=== PATIENT | male | born 1950 | race Caucasian/White ===

== ENCOUNTER 2019-09-20 15:10 | Emergency (ER) | payer MEDICARE, OTHER ==
[2019-09-20 15:21] VITALS: BP 124/95; PULSE 93; RESP 18; TEMP 97.6
[2019-09-20] MEDS ORDERED: CEPHALEXIN 500MG STARTER PACK 4 CAP BTL PO STA (15:35)
[2019-09-20] MEDS ORDERED: DIPH,PERTUS(ACELL)TETVAC-LF 0.5 ML VIAL IM ONE (15:35)
[2019-09-20] MEDS ORDERED: CEPHALEXIN 500 MG CAP PO STA (15:35)
--- NOTE | 2019-09-20 16:02 | XR ---
EXAMINATION TYPE: XR hand complete RT DATE OF EXAM: 09/20/2019 COMPARISON: NONE HISTORY: Pain TECHNIQUE: Three views are submitted. FINDINGS: The osseous structures are intact. The joint spaces are preserved and there is no acute fracture or dislocation. Soft tissue swelling adjacent to the fifth digit. IMPRESSION: 1. No definite acute fracture or dislocation if symptoms persist, follow-up study in 7 to 10 days wo uld be suggested
[2019-09-20] MEDS ORDERED: LIDOCAINE 1% INJ 10MG/ML (20 ML MDV) SQ STA (16:10)
--- NOTE | 2019-09-20 18:11 | ED ---
General Adult HPI - General Chief complaint: Wound/Laceration Stated complaint: Hand laceration Time Seen by Provider: 09/20/19 15:16 Source: patient, RN notes reviewed, old records reviewed Mode of arrival: ambulatory Limitations: no limitations - History of Present Illness Initial comments: 69-year-old male patient presents to ED for chief complaint of laceration to right knuckle region. Patient reports that he is detaching a blade from a lawnmower and was stopped, reports that as he provided free came loose causing laceration to the metacarpal joint of his right hand. Presented date of last tetanus. Denies any other complaint. Systemic: Pt denies fatigue, fever/chills, rash. Pt denies weakness, night sweats, weight loss. Neuro: Pt denies headache, visual disturbances, syncope or pre-syncope. HEENT: Pt denies ocular discharge or irritation, otalgia, rhinorrhea, pharyngitis or notable lymphadenopathy. Cardiopulmonary: Pt denies chest pain, SOB, heart palpitations, dyspnea on exertion. Abdominal/GI: Pt denies abdominal pain, n/v/d. : Pt denies dysuria, burning w/ urination, frequency/urgency. Denies new onset urinary or bowel incontinence. MSK: Pt denies myalgia, loss of strength or function in extremities. Neuro: Pt denies new onset weakness, paresthesias. - Related Data Home Medications Medication Instructions Recorded Confirmed Atenolol [Tenormin] 50 mg PO DAILY 12/19/13 12/22/13 Atorvastatin [Lipitor] 10 mg PO HS 12/19/13 12/22/13 Cholecalciferol [Vitamin D3] 4,000 units PO HS 12/19/13 12/22/13 Flecainide [Tambocor] 100 mg PO BID 12/19/13 12/22/13 Warfarin [Coumadin] 2 mg PO DAILY 12/22/13 12/22/13 Previous Rx's Medication Instructions Recorded Cephalexin [Keflex] 500 mg PO Q12HR 7 Days #14 cap 09/20/19 Allergies Allergy/AdvReac Type Severity Reaction Status Date / Time dipyridamole Allergy Unknown Verified 09/20/19 15:20 [From Persantine] Review of Systems ROS Statement: Those systems with pertinent positive or pertinent negative responses have been documented in the HPI. ROS Other: All systems not noted in ROS Statement are negative. Past Medical History Past Medical History: Hypertension Additional Past Medical History / Comment(s): SEE DR JIMENEZ H&P History of Any Multi-Drug Resistant Organisms: None Reported Past Surgical History: Appendectomy, Cholecystectomy, Hernia Repair, Tonsillectomy Past Anesthesia/Blood Transfusion Reactions: No Reported Reaction Past Psychological History: No Psychological Hx Reported Smoking Status: Former smoker Past Alcohol Use History: None Reported Past Drug Use History: None Reported General Exam - General Exam Comments Initial Comments: Constitutional: NAD, AOX3, Pt has pleasant affect. HEENT: NC/AT, trachea midline, neck supple, no lymphadenopathy. Posterior pharynx non erythematous, without exudates. External ears appear normal, without discharge. Mucous membranes moist. Eyes PERRLA, EOM intact. There is no scleral icterus. No pallor noted. Cardiopulmonary: RRR, no murmurs, rubs or gallops, no JVD noted. Lungs CTAB in a nterior and posterior gonzales. No peripheral edema. Abdominal exam: Abdomen soft and non-distended. Abdomen non-tender to palpation in all 4 quadrants. Bowel sounds active in LLQ. No hepatosplenomegaly. No ecchymosis Neuro: CN II-XII grossly intact. No nuchal rigidity. No raccon eyes, no friend sign, no hemotympanum. No cervical spinal tenderness. MSK: 3 cm stellate laceration right metacarpal region. Full active range of motion of digit. No osseous abnormality noted, no foreign body. Approximately with 4 simple interrupted sutures. Vigorously irrigated with 500 mL normal saline. Neurovascularly intact before and after procedure. Full active ROM in upper and lower extremities, 5/5 stregnth. Limitations: no limitations Course Vital Signs 09/20/19 15:17 Temperature 97.6 F Pulse Rate 93 Respiratory 18 Rate Blood Pressure 124/95 O2 Sat by Pulse 95 Oximetry Procedures - Laceration Laceration #1 Consent Obtained: verbal consent Indication: laceration Site: hand Size (cm): 3 Description: linear Depth: simple, single layer Anesthetic Used: lidocaine 1% Anesthesia Technique: local infiltration Amount (mls): 4 Pre-repair: wound explored, irrigated extensively, deep structures intact Type of Sutures: nylon Size of Sutures: 5-0 Number of Sutures: 4 Technique: simple, interrupted Patient Tolerated Procedure: well, no complications Medical Decision Making - Medical Decision Making 69-year-old male patient presents to ED for evaluation of laceration. Patient will signs are stable, afebrile. Laceration was vigorously irrigated and approximated. Patient is she on antibiotics prophylactically will follow up with primary care provider and return to ER if condition worsens. Case discussed with Dr. Devries Disposition Clinical Impression: Laceration Disposition: HOME SELF-CARE Condition: Stable Instructions (If sedation given, give patient instructions): Care For Your Stitches (ED), Laceration (ED) Additional Instructions: Patient to adhere to previously discussed treatment plan. Tale antibiotics as directed. Patient to follow up with PCP in 1-2 days. Patient to return to ED if symptoms do not improve. Please return for suture removal: Hand: 7-10 days Face: 5 days Chest/abdomen: 12-14 days Extremities: 7-10 days Scalp: 7 days Eyebrow: 5-7 days Foot/sole: 12-14 days Please monitor for signs and symptoms of infection including: redness, warmth, drainage, discharge. Please return to ED if these signs or symptoms occur, new signs or symptoms develop or if condition worsens in anyway. Prescriptions: Cephalexin [Keflex] 500 mg PO Q12HR 7 Days #14 cap Is patient prescribed a controlled substance at d/c from ED?: No Referrals: Cesario Matthews MD [Primary Care Provider] - 1-2 days
== END 2019-09-20 18:26 | disposition home or self-care (01) ==
LOC: EC 15:10
DX: S61.411A Laceration without foreign body of right hand, initial encounter (principal); Z23 Encounter for immunization; I10 Essential (primary) hypertension; Z79.899 Other long term (current) drug therapy; Z79.01 Long term (current) use of anticoagulants; Z88.8 Allergy status to other drugs, medicaments and biological substances; Z87.891 Personal history of nicotine dependence; W31.89XA Contact with other specified machinery, initial encounter
CPT/HCPCS: 99283; 12002; 90471; 73130; 90715; J2001

== ENCOUNTER 2020-02-17 14:40 | Inpatient (IN) | payer MEDICARE, OTHER ==
--- NOTE | 2020-02-17 15:16 | ED ---
Recheck HPI - General Chief Complaint: Recheck/Abnormal Lab/Rx Stated Complaint: lab recheck-sent by PCP Time Seen by Provider: 02/17/20 14:57 Source: patient, RN notes reviewed Mode of arrival: ambulatory Limitations: no limitations - History of Present Illness Initial Comments: 69-year-old male presents emergency Department with chief complaint of exe rtional dyspnea, fatigue. Patient states that he saw his primary care physician who he still in which she was placed on a steroid and antibiotics at that time. He states he had no exact cough congestion but states he had some upper abdominal pain and which she did labs and found that he had a hemoglobin 8.2. Patient states he finished a course states she's felt worse. He states that he cannot walk or do any feel activity without feeling very fatigued or short of breath. Patient states he had an echocardiogram with the last month which did not reveal any acute abnormality. Patient does have history of A. fib no prior stents. Patient denies any chest pain no history of PE. Patient went of leg swelling he does complain of epigastric discomfort and which he did have some black stools which was resolved after the antibiotics and steroids. Patient had Hemoccult testing after antibiotics and black stools was resolved and is Hemoccult negative. - Related Data Home Medications Medication Instructions Recorded Confirmed Atorvastatin [Lipitor] 10 mg PO HS 12/19/13 12/22/13 Cholecalciferol [Vitamin D3] 4,000 units PO HS 12/19/13 12/22/13 Flecainide [Tambocor] 100 mg PO BID 12/19/13 12/22/13 atenoloL [Tenormin] 50 mg PO DAILY 12/19/13 12/22/13 Warfarin [Coumadin] 2 mg PO DAILY 12/22/13 12/22/13 Previous Rx's Medication Instructions Recorded Cephalexin [Keflex] 500 mg PO Q12HR 7 Days #14 cap 09/20/19 Allergies Allergy/AdvReac Type Severity Reaction Status Date / Time dipyridamole Allergy Unknown Verified 02/17/20 14:44 [From Persantine] Review of Systems ROS Statement: Those systems with pertinent positive or pertinent negative responses have been documented in the HPI. ROS Other: All systems not noted in ROS Statement are negative. Past Medical History Past Medical History: Coronary Artery Disease (CAD), Hypertension Additional Past Medical History / Comment(s): SEE DR JIMENEZ H&P History of Any Multi-Drug Resistant Organisms: None Reported Past Surgical History: Appendectomy, Cholecystectomy, Hernia Repair, Tonsillectomy Past Anesthesia/Blood Transfusion Reactions: No Reported Reaction Past Psychological History: No Psychological Hx Reported Smoking Status: Former smoker Past Alcohol Use History: Occasional Past Drug Use History: None Reported General Exam Limitations: no limitations General appearance: alert, in no apparent distress Head exam: Present: atraumatic, normocephalic, normal inspection Eye exam: Present: normal appearance, PERRL, EOMI. Absent: scleral icterus, conjunctival injection, periorbital swelling ENT exam: Present: normal exam, normal oropharynx, mucous membranes moist, TM's normal bilaterally Neck exam: Present: normal inspection, full ROM. Absent: tenderness, meningismus, lymphadenopathy Respiratory exam: Present: normal lung sounds bilaterally. Absent: respiratory distress, wheezes, rales, rhonchi, stridor Cardiovascular Exam: Present: regular rate, normal rhythm, normal heart sounds. Absent: systolic murmur, diastolic murmur, rubs, gallop, clicks GI/Abdominal exam: Present: soft, normal bowel sounds. Absent: distended, tenderness, guarding, rebound, rigid Neurological exam: Present: alert, oriented X3, CN II-XII intact, reflexes normal. Absent: motor sensory deficit Skin exam: Present: warm, dry, intact, normal color. Absent: rash Course Vital Signs 02/17/20 14:42 Temperature 98.2 F Pulse Rate 84 Respiratory 18 Rate Blood Pressure 133/61 O2 Sat by Pulse 99 Oximetry Medical Decision Making - Medical Decision Making 69-year-old male presented for exertional dyspnea. Patient's found to be anemic at 7.0. Patient had compression Hemoccult positive and negative though still concerning for possible peptic ulcer disease patient was given Protonix as he is 1 unit case discussed with Dr. Ford with zain physician - Lab Data Result diagrams: 02/17/20 15:54 02/17/20 15:54 Lab Results 02/17/20 02/17/20 02/17/20 Range/Units 15:54 15:54 15:54 WBC 5.2 (3.8-10.6) k/uL RBC 3.09 L (4.30-5.90) m/uL Hgb 7.0 L (13.0-17.5) gm/dL Hct 22.5 L (39.0-53.0) % MCV 72.8 L (80.0-100.0) fL MCH 22.5 L (25.0-35.0) pg MCHC 30.9 L (31.0-37.0) g/dL RDW 15.9 H (11.5-15.5) % Plt Count 304 (150-450) k/uL Neutrophils % 70 % Lymphocytes % 15 % Monocytes % 8 % Eosinophils % 4 % Basophils % 1 % Neutrophils # 3.6 (1.3-7.7) k/uL Lymphocytes # 0.8 L (1.0-4.8) k/uL Monocytes # 0.4 (0-1.0) k/uL Eosinophils # 0.2 (0-0.7) k/uL Basophils # 0.0 (0-0.2) k/uL Hypochromasia Marked Poikilocytosis Moderate Microcytosis Moderate PT 11.6 (9.0-12.0) sec INR 1.1 (<1.2) APTT 17.5 L (22.0-30.0) sec D-Dimer <0.17 (<0.60) mg/L FEU Sodium 137 (137-145) mmol/L Potassium 4.0 (3.5-5.1) mmol/L Chloride 101 (98-107) mmol/L Carbon Dioxide 27 (22-30) mmol/L Anion Gap 9 mmol/L BUN 23 H (9-20) mg/dL Creatinine 1.46 H (0.66-1.25) mg/dL Est GFR (CKD-EPI)AfAm 55 (>60 ml/min/1.73 sqM) Est GFR (CKD-EPI)NonAf 48 (>60 ml/min/1.73 sqM) Glucose 139 H (74-99) mg/dL Plasma Lactic Acid Silvio (0.7-2.0) mmol/L Calcium 9.2 (8.4-10.2) mg/dL Magnesium 1.9 (1.6-2.3) mg/dL Total Bilirubin 0.6 (0.2-1.3) mg/dL AST 64 H (17-59) U/L ALT 54 H (4-49) U/L Alkaline Phosphatase 78 (38-126) U/L Creatine Kinase 61 (55-170) U/L Troponin I (0.000-0.034) ng/mL NT-Pro-B Natriuret Pep pg/mL Total Protein 6.6 (6.3-8.2) g/dL Albumin 4.2 (3.5-5.0) g/dL 02/17/20 02/17/20 02/17/20 Range/Units 15:54 15:54 15:54 WBC (3.8-10.6) k/uL RBC (4.30-5.90) m/uL Hgb (13.0-17.5) gm/dL Hct (39.0-53.0) % MCV (80.0-100.0) fL MCH (25.0-35.0) pg MCHC (31.0-37.0) g/dL RDW (11.5-15.5) % Plt Count (150-450) k/uL Neutrophils % % Lymphocytes % % Monocytes % % Eosinophils % % Basophils % % Neutrophils # (1.3-7.7) k/uL Lymphocytes # (1.0-4.8) k/uL Monocytes # (0-1.0) k/uL Eosinophils # (0-0.7) k/uL Basophils # (0-0.2) k/uL Hypochromasia Poikilocytosis Microcytosis PT (9.0-12.0) sec INR (<1.2) APTT (22.0-30.0) sec D-Dimer (<0.60) mg/L FEU Sodium (137-145) mmol/L Potassium (3.5-5.1) mmol/L Chloride (98-107) mmol/L Carbon Dioxide (22-30) mmol/L Anion Gap mmol/L BUN (9-20) mg/dL Creatinine (0.66-1.25) mg/dL Est GFR (CKD-EPI)AfAm (>60 ml/min/1.73 sqM) Est GFR (CKD-EPI)NonAf (>60 ml/min/1.73 sqM) Glucose (74-99) mg/dL Plasma Lactic Acid Silvio 1.6 (0.7-2.0) mmol/L Calcium (8.4-10.2) mg/dL Magnesium (1.6-2.3) mg/dL Total Bilirubin (0.2-1.3) mg/dL AST (17-59) U/L ALT (4-49) U/L Alkaline Phosphatase (38-126) U/L Creatine Kinase (55-170) U/L Troponin I <0.012 (0.000-0.034) ng/mL NT-Pro-B Natriuret Pep 172 pg/mL Total Protein (6.3-8.2) g/dL Albumin (3.5-5.0) g/dL Critical Care Time Critical Care Time: Yes Total Critical Care Time: 35 Critical Care Time: Total 35 minutes of critical care time use initially evaluated patient, reviewed past medical history according labs. Patient on have anemia at 7.0 with no clear source concerning for GI bleed patient was given Protonix now, 40 mg twice a day case discussed with admitting physician. Consult to GI for EGD and colonoscopy. Patient was transfused 1 unit while have repeat H&H Disposition Clinical Impression: Anemia, Exertional dyspnea Disposition: ADMITTED IP TO THIS HOSP Condition: Fair Referrals: Cesario Matthews MD [Primary Care Provider] - 1-2 days
--- NOTE | 2020-02-17 16:00 | XR ---
EXAMINATION TYPE: XR chest 2V DATE OF EXAM: 02/17/2020 CLINICAL HISTORY: Difficult in breathing TECHNIQUE: Frontal and lateral views of the chest are obtained. COMPARISON: 12/26/2010 chest radiograph FINDINGS: The cardiomediastinal silhouette is within normal limits for size. Pulmonary vasculature i s normal. There is no focal air space opacity, pleural effusion, or pneumothorax seen. Degenerative c hanges of the spine. IMPRESSION: No acute cardiopulmonary process.
[2020-02-17 16:07] LABS: Basophils % (A) 1 %; Eosinophils # (A) 0.2 k/uL (0-0.7); Eosinophils % (A) 4 %; HCT 22.5 % (39.0-53.0); Hypochromasia Marked; Lymphocytes # (A) 0.8 k/uL (1.0-4.8); Lymphocytes % (A) 15 %; MCH 22.5 pg (25.0-35.0); MCHC 30.9 g/dL (31.0-37.0); MCV 72.8 fL (80.0-100.0); Mean Platelet Volume 7.6; Microcytosis Moderate; Monocytes # (A) 0.4 k/uL (0-1.0); Monocytes % (A) 8 %; Neutrophils # (A) 3.6 k/uL (1.3-7.7); Neutrophils % (A) 70 %; Platelet Count 304 k/uL (150-450); Poikilocytosis Moderate; RBC 3.09 m/uL (4.30-5.90); RDW 15.9 % (11.5-15.5); WBC 5.2 k/uL (3.8-10.6)
[2020-02-17 16:22] LABS: Albumin 4.2 g/dL (3.5-5.0); Calcium 9.2 mg/dL (8.4-10.2); Magnesium 1.9 mg/dL (1.6-2.3); Total Bilirubin 0.6 mg/dL (0.2-1.3); Total Protein 6.6 g/dL (6.3-8.2)
[2020-02-17 16:30] LABS: INR 1.1 (<1.2); Prothrombin Time 11.6 sec (9.0-12.0)
[2020-02-17 16:33] LABS: D-Dimer <0.17 mg/L FEU (<0.60); Partial Thromboplastin Time 17.5 sec (22.0-30.0)
[2020-02-17] MEDS ORDERED: PANTOPRAZOLE 40 MG/10 ML VIAL IVP STA (17:40)
[2020-02-17] MEDS ORDERED: ONDANSETRON 4 MG/2 ML VIAL IVP PRN (17:42)
[2020-02-17] MEDS ORDERED: NALOXONE 0.4 MG/ML 1 ML VIAL IV PRN (17:42)
[2020-02-17] MEDS: PANTOPRAZOLE 40 MG/10 ML VIAL IVP SCH (21:23)
--- NOTE | 2020-02-17 22:38 | P.HPIM ---
History of Present Illness H&P Date: 02/17/20 The patient is a 69-year-old male with a PMH of recently diagnosed COPD, A. fib (on Xarelto), hypertension, and hyperlipidemia who presented to the ED with complaints of decreased exercise tolerance and black tarry stools. The patient reports that his excess tolerance is gradually decreasing over the past few months, particularly after he started taking Xarelto in September. He reports that his primary care physician discontinued his Xarelto a few days ago after he endorsed black tarry stools to him. He notes occasional black tarry stools over the course of the past few months, with no bright red blood per rectum. Had colonoscopy 2-3 years ago which revealed diverticulosis as per the patient. Also reports occasional epigastric cramping abdominal pain, 3-4 out of 10, nonradiating which improves with eating. He endorses taking ibuprofen on an almost daily basis for the past few years. Denied chest discomfort, nausea, vomiting, diarrhea, cough, fever, or chills. In the emergency room EKG revealed a normal sinus rhythm at [address]/T-wave changes noted as reviewed by me. Chest x-ray was unremarkable. Laboratory evaluation revealed a WBC count of 5.2, hemoglobin 7.0, platelets 304, sodium 137, potassium 4.0, BUN 23, creatinine 1.46, and glucose 139 with AST 64, ALT 54, alkaline phosphatase 78, troponin less than 0.012. Patient denied previously been told of low hemoglobin or anemia of any sort. Review of Systems Pertinent positives and negatives as discussed in HPI, a complete review of systems was performed and all other systems are negative. Past Medical History Past Medical History: Atrial Fibrillation, Hypertension Additional Past Medical History / Comment(s): SEE DR JIMENEZ H&P, History of Any Multi-Drug Resistant Organisms: None Reported Past Surgical History: Appendectomy, Cholecystectomy, Hernia Repair, Tonsil lectomy Past Anesthesia/Blood Transfusion Reactions: No Reported Reaction Past Psychological History: No Psychological Hx Reported Smoking Status: Former smoker Past Alcohol Use History: Occasional Past Drug Use History: None Reported - Past Family History Father Family Medical History: Coronary Artery Disease (CAD) Additional Family Medical History / Comment(s): blood Disorder Mother Additional Family Medical History / Comment(s): Emphysema Medications and Allergies Home Medications Medication Instructions Recorded Confirmed Type Cholecalciferol [Vitamin D3] 5,000 units PO HS 12/19/13 02/17/20 History Azelastine HCl [Astepro] 2 spray EA NOSTRIL DAILY 02/17/20 02/17/20 History Flecainide Acetate 50 mg PO BID 02/17/20 02/17/20 History Omeprazole 40 mg PO DAILY 02/17/20 02/17/20 History Pravastatin Sodium [Pravachol] 10 mg PO HS 02/17/20 02/17/20 History Triamterene/Hydrochlorothiazid 1 tab PO DAILY 02/17/20 02/17/20 History [Triamterene-Hctz 37.5-25 mg Tb] atenoloL [Atenolol] 12.5 mg PO HS 02/17/20 02/17/20 History Allergies Allergy/AdvReac Type Severity Reaction Status Date / Time dipyridamole Allergy Unknown Verified 02/17/20 18:10 [From Persantine] Physical Exam Vitals: Vital Signs Temp Pulse Pulse Resp BP BP Pulse Ox 02/17/20 22:01 98.9 F 53 L 18 125/70 94 L 02/17/20 21:51 98.3 F 94 20 134/74 98 02/17/20 19:38 98.3 F 70 18 129/64 98 02/17/20 18:11 98.4 F 81 16 136/78 98 02/17/20 16:30 82 18 132/77 98 02/17/20 14:42 98.2 F 84 18 133/61 99 Intake and Output 02/17/20 02/17/20 02/17/20 06:59 14:59 22:59 Intake Total 0 Balance 0 Intake: Blood Product 0 Rc As-1 Unit 0 [id number] Other: # Voids 1 Weight 83.915 kg 83.915 kg General: non toxic, no distress, appears at stated age, overweight Derm: no unusual rashes/lesions no unusual ecchymoses, warm, dry Head: atraumatic, normocephalic, symmetric Eyes: EOMI, no lid lag, anicteric sclera, pupils equal round reactive to light ENT: Nose and ears atraumatic, no thrush, no pharyngeal erythema Neck: No thyromegaly, no cervical lymphadenopathy, trachea midline, supple Mouth: no lip lesion, mucus membranes moist Cardiovascular: S1S2 reg, no murmur, positive posterior tibial pulse bilateral, no edema, capillary refill less than 2 seconds Lungs: CTA bilateral, no rhonchi, no rales , no accessory muscle use Abdominal: soft, minimal epigastric tenderness, no guarding, no appreciable organomegaly, normal bowel sounds Ext: no gross muscle atrophy, muscle strength 5 out of 5 in all 4 extremities grossly, no contractures, Neuro: CN II-XI grossly intact, light touch intact all 4 extremities, finger to nose within normal limits, Psych: Alert, oriented, appropriate affect Results CBC & Chem 7: 02/18/20 01:13 02/17/20 15:54 Labs: Abnormal Lab Results - Last 24 Hours (Table) 02/17/20 02/17/20 02/17/20 Range/Units 15:54 15:54 15:54 RBC 3.09 L (4.30-5.90) m/uL Hgb 7.0 L (13.0-17.5) gm/dL Hct 22.5 L (39.0-53.0) % MCV 72.8 L (80.0-100.0) fL MCH 22.5 L (25.0-35.0) pg MCHC 30.9 L (31.0-37.0) g/dL RDW 15.9 H (11.5-15.5) % Lymphocytes # 0.8 L (1.0-4.8) k/uL APTT 17.5 L (22.0-30.0) sec BUN 23 H (9-20) mg/dL Creatinine 1.46 H (0.66-1.25) mg/dL Glucose 139 H (74-99) mg/dL AST 64 H (17-59) U/L ALT 54 H (4-49) U/L Crossmatch 02/17/20 Range/Units 17:10 RBC (4.30-5.90) m/uL Hgb (13.0-17.5) gm/dL Hct (39.0-53.0) % MCV (80.0-100.0) fL MCH (25.0-35.0) pg MCHC (31.0-37.0) g/dL RDW (11.5-15.5) % Lymphocytes # (1.0-4.8) k/uL APTT (22.0-30.0) sec BUN (9-20) mg/dL Creatinine (0.66-1.25) mg/dL Glucose (74-99) mg/dL AST (17-59) U/L ALT (4-49) U/L Crossmatch See Detail Thrombosis Risk Factor Assmnt - Choose All That Apply Any of the Below Risk Factors Present?: Yes Each Factor Represents 1 point: Obesity (BMI >25) Other Risk Factors: Yes Each Risk Factor Represents 2 Points: Age 61-74 years Other congenital or acquired thrombophilia - If yes, enter type in comment: No Thrombosis Risk Factor Assessment Total Risk Factor Score: 3 Thrombosis Risk Factor Assessment Level: Moderate Risk Assessment and Plan Plan: Acute blood loss anemia due to GI bleed, suspected peptic ulcer disease -1 unit of PRBCs ordered -Consult GI -Nothing by mouth from midnight -Protonix 40 mg IV twice a day -IV fluids -Continue to hold Xarelto Kidney injury, acute versus chronic -Monitor BMP -Unknown baseline Abnormal LFTs -Monitor for now Chronic conditions: Hypertension, hyperlipidemia, COPD -Continue with home Atenolol, Pravachol -Hold diuretics in setting of active GI bleeding DVT prophylaxis -IPCDs The patient is admitted with an anticipated more than 2 midnight stay for evaluation of bleeding. CODE STATUS: Full code Discussed with: Patient Anticipated discharge date: 2-[address]: Home A total of 40 minutes was spent on the care of this complex patient more than 50% of the time was spent in counseling and care coordination.
[2020-02-18] MEDS: SODIUM CHLORIDE 0.9% 1,000 ML IV SCH ×2 (00:01→12:47)
[2020-02-18 01:29] LABS: Anisocytosis Slight; HCT 24.2 % (39.0-53.0); HGB 7.2 gm/dL (13.0-17.5); Hypochromasia Marked; MCH 22.8 pg (25.0-35.0); MCHC 29.9 g/dL (31.0-37.0); MCV 76.2 fL (80.0-100.0); Mean Platelet Volume 8.5; Microcytosis Slight; Platelet Count 253 k/uL (150-450); Poikilocytosis Moderate; RBC 3.17 m/uL (4.30-5.90); RDW 17.5 % (11.5-15.5); WBC 5.4 k/uL (3.8-10.6)
[2020-02-18 07:17] LABS: Anisocytosis Slight; HCT 23.8 % (39.0-53.0); HGB 7.2 gm/dL (13.0-17.5); Hypochromasia Marked; MCHC 30.2 g/dL (31.0-37.0); MCV 76.1 fL (80.0-100.0); Mean Platelet Volume 7.3; Microcytosis Slight; Platelet Count 258 k/uL (150-450); Poikilocytosis Moderate; RBC 3.13 m/uL (4.30-5.90); RDW 16.8 % (11.5-15.5); WBC 4.5 k/uL (3.8-10.6)
[2020-02-18] MEDS: PANTOPRAZOLE 40 MG/10 ML VIAL IVP SCH ×2 (08:39→20:07)
[2020-02-18] MEDS: FLECAINIDE 50 MG TAB PO SCH ×2 (08:41→20:07)
[2020-02-18] MEDS ORDERED: PANTOPRAZOLE 40 MG/10 ML VIAL IVP SCH (09:00)
[2020-02-18 12:14] LABS: Anisocytosis Slight; HCT 27.4 % (39.0-53.0); HGB 8.3 gm/dL (13.0-17.5); Hypochromasia Marked; MCHC 30.2 g/dL (31.0-37.0); MCV 76.1 fL (80.0-100.0); Mean Platelet Volume 8.3; Microcytosis Slight; Platelet Count 285 k/uL (150-450); Poikilocytosis Moderate; RDW 16.8 % (11.5-15.5); WBC 5.5 k/uL (3.8-10.6)
[2020-02-18 12:14] LABS: African American GFR (CKD) 53.5 (60.0-200.0); Albumin 3.7 g/dL (3.80-4.90); Albumin/Globulin Ratio 2.06 (1.60-3.17); Anion Gap 10.5 mmol/L (4.00-12.00); BUN/Creat Ratio 13.33 Ratio (12.00-20.00); Calcium 8.8 mg/dL (8.7-10.3); Carbon Dioxide 27.5 mmol/L (21.6-31.8); Globulin 1.8 g/dL (1.6-3.3); Non-African American GFR(CKD) 46.2 (60.0-200.0); Total Bilirubin 0.9 mg/dL (0.3-1.2); Total Protein 5.5 g/dL (6.2-8.2)
[2020-02-18] MEDS ORDERED: ALBUTEROL NEBULIZED 2.5 MG/3 ML INHALATION PRN (12:27)
--- NOTE | 2020-02-18 12:28 | P.PN ---
Subjective Progress Note Date: 02/18/20 (delayed charting seen at 1000) Principal diagnosis: GI bleed Patient is a 69-year-old male with a history of COPD, A. fib started on Xarelto approximately [address] Humphries, hypertension, and dyslipidemia who presented to the emergency department due to decreased exercise tolerance of black tarry stools. He was recently seen by his primary care care physician was Dr. Schwartz due to his dark and tarry stools. Will need continued he presented to the ER. He has had a colonoscopy 2-3 years ago which he states showed diverticulosis. He has recently been having some abdominal cramping. On arrival to the ER his vital signs within normal limits. Initial laboratory analysis showed hemoglobin 7, hematocrit 22.5, INR 1.1, and creatinine 1.46. He was ordered 1 unit of packed red blood cells and subsequently admitted. Repeat hemoglobin after 1 unit of packed red blood cells was 7.2. GI was consulted. Patient seen and examined at bedside. He continues to have some epigastric pain he states been there for several months that he has had this in the past. He's been on treatment for acid reflux for the last 1-[address] Matthews. General: non toxic, no distress, appears younger than stated age Derm: warm, dry Head: atraumatic, normocephalic, symmetric Eyes: EOMI, no lid lag, anicteric sclera Mouth: no lip lesion, mucus membranes moist Cardiovascular: S1S2 reg, no murmur, positive posterior tibial pulse bilateral, Lungs: CTA bilateral, no rhonchi, no rales , no accessory muscle use Abdominal: soft, tender to palpation sub-xiphoid, no guarding, no appreciable organomegaly Ext: no gross muscle atrophy, no edema, no contractures Neuro: CN II-XI grossly intact, no focal neuro deficits Psych: Alert, oriented, appropriate affect Anemia with probable GI bleed -PPI -Nothing by mouth -Serial CBC -Status post 1 unit of packed red blood cells, will recheck hemoglobin at noon and transfuse as indicated -GI consult -Continue to hold xarelto Elevated creatinine -Unknown baseline -CKD VS BLACK -Avoid additional nephrotoxic agents -Continue with IV fluids -Repeat creatinine in a.m. P. A fib - monitor HR - Flecanide - atenolol Transaminitis - mildly elevated for AST/ALT - GI recs HTN - atenolol - follow BP HLD - statin COPD - prn bronchdilators DVT prophylaxis: SCDs Discussed with: patient Anticipated discharge: in AM Anticipated discharge place: home A total of 35 minutes was spent on the care of this complex patient more than 50% of the time was spent in counseling and care coordination. Objective - Vital Signs Vital signs: Vital Signs Temp 98.1 F 02/18/20 11:45 Pulse 72 02/18/20 11:45 Resp 20 02/18/20 11:45 BP 120/58 02/18/20 11:45 Pulse Ox 96 02/18/20 11:45 Intake & Output 02/17/20 02/18/20 02/18/20 18:59 06:59 18:59 Intake Total 310 Balance 310 Weight 83.915 kg Intake: Blood Product 310 Rc As-1 Unit 310 [id number] Other: Voiding Method Toilet Toilet # Voids 1 - Labs CBC & Chem 7: 02/18/20 06:32 02/17/20 15:54 Labs: Abnormal Lab Results - Last 24 Hours (Table) 02/17/20 02/17/20 02/17/20 Range/Units 15:54 15:54 15:54 RBC 3.09 L (4.30-5.90) m/uL Hgb 7.0 L (13.0-17.5) gm/dL Hct 22.5 L (39.0-53.0) % MCV 72.8 L (80.0-100.0) fL MCH 22.5 L (25.0-35.0) pg MCHC 30.9 L (31.0-37.0) g/dL RDW 15.9 H (11.5-15.5) % Lymphocytes # 0.8 L (1.0-4.8) k/uL APTT 17.5 L (22.0-30.0) sec BUN 23 H (9-20) mg/dL Creatinine 1.46 H (0.66-1.25) mg/dL Glucose 139 H (74-99) mg/dL AST 64 H (17-59) U/L ALT 54 H (4-49) U/L Crossmatch 02/17/20 02/18/20 02/18/20 Range/Units 17:10 01:13 06:32 RBC 3.17 L 3.13 L (4.30-5.90) m/uL Hgb 7.2 L 7.2 L (13.0-17.5) gm/dL Hct 24.2 L 23.8 L (39.0-53.0) % MCV 76.2 L 76.1 L (80.0-100.0) fL MCH 22.8 L 23.0 L (25.0-35.0) pg MCHC 29.9 L 30.2 L (31.0-37.0) g/dL RDW 17.5 H 16.8 H (11.5-15.5) % Lymphocytes # (1.0-4.8) k/uL APTT (22.0-30.0) sec BUN (9-20) mg/dL Creatinine (0.66-1.25) mg/dL Glucose (74-99) mg/dL AST (17-59) U/L ALT (4-49) U/L Crossmatch See Detail
[2020-02-18 13:19] LABS: % Iron Saturation 8.78 (15.00-50.00)
[2020-02-18 13:31] LABS: Ferritin 5.8 ng/mL (22.0-322.0)
--- NOTE | 2020-02-18 13:59 | P.CONS ---
History of Present Illness - Reason for Consult Consult date: 02/18/20 GI bleed Requesting physician: Nayeli Gonzales - Chief Complaint weakness, melena - History of Present Illness 69-year-old pleasant male with a medical history significant for COPD, atrial fibrillation on Xarelto therapy, hypertension, dyslipidemia and a remote history of peptic ulcer disease who presented to the hospital due to complaints of weakness and dark-colored stool. The patient reports that he is been seen black dark-colored stool over the past few weeks. He denies any gross blood per rectum. He reports a history of peptic ulcer disease in the remote past and is unsure how this was diagnosed her with the etiology was. He denies any epigastric discomfort. The patient has been taking significantNSAID therapy reporting that he takes daily ibuprofen for joint pain. Last colonoscopy was approximately 2-3 years ago per his recollection and significant only for diverticulosis. On presentation patient was found to be anemic with a hemoglobin of 7.0. Currently 7.2 after 1 unit of PRBCs. Xarelto has been held since last week. He denies taking any PPI therapy. Review of Systems REVIEW OF SYSTEMS: CONSTITUTIONAL: Denies any fevers, chills, weight change but he has report significant fatigue and weakness especially on exertion. CARDIOVASCULAR: Denies any chest pain, palpitations high or low blood pressures RESPIRATORY: Denies any shortness of breath, hemoptysis or cough. GENITOURINARY: No dysuria or hematuria. MUSCULOSKELETAL: No weakness reported, but does report joint pain. SKIN: Denies any new rashes or lesions, jaundice or pallor. PSYCHIATRIC: Denies any depression or anxiety. NEUROLOGY: Denies headache, denies any new focal deficits. EARS/NOSE/THROAT: No recent hearing change, congestion, nasal discharge or sore throat. EYES: No pain in eyes, discharge or change in vision. GASTROINTESTINAL: As per HPI. Past Medical History Past Medical History: Atrial Fibrillation, Hypertension Additional Past Medical History / Comment(s): SEE DR JIMENEZ H&P, History of Any Multi-Drug Resistant Organisms: None Reported Past Surgical History: Appendectomy, Cholecystectomy, Hernia Repair, Tonsillectomy Past Anesthesia/Blood Transfusion Reactions: No Reported Reaction Past Psychological History: No Psychological Hx Reported Smoking Status: Former smoker Past Alcohol Use History: Occasional Past Drug Use History: None Reported - Past Family History Father Family Medical History: Coronary Artery Disease (CAD) Additional Family Medical History / Comment(s): blood Disorder Mother Additional Family Medical History / Comment(s): Emphysema Medications and Allergies Home Medications Medication Instructions Recorded Confirmed Type Cholecalciferol [Vitamin D3] 5,000 units PO HS 12/19/13 02/17/20 History Azelastine HCl [Astepro] 2 spray EA NOSTRIL DAILY 02/17/20 02/17/20 History Flecainide Acetate 50 mg PO BID 02/17/20 02/17/20 History Omeprazole 40 mg PO DAILY 02/17/20 02/17/20 History Pravastatin Sodium [Pravachol] 10 mg PO HS 02/17/20 02/17/20 History Triamterene/Hydrochlorothiazid 1 tab PO DAILY 02/17/20 02/17/20 History [Triamterene-Hctz 37.5-25 mg Tb] atenoloL [Atenolol] 12.5 mg PO HS 02/17/20 02/17/20 History Allergies Allergy/AdvReac Type Severity Reaction Status Date / Time dipyridamole Allergy Unknown Verified 02/17/20 18:10 [From Persantine] Physical Exam Vitals: Vital Signs Temp Pulse Pulse Resp BP BP Pulse Ox 02/18/20 05:26 97.6 F 71 17 101/61 94 L 02/18/20 00:33 99.0 F 76 18 110/66 96 02/17/20 22:31 99.0 F 73 17 120/67 98 02/17/20 22:01 98.9 F 53 L 18 125/70 94 L 02/17/20 21:51 98.3 F 94 20 134/74 98 02/17/20 19:38 98.3 F 70 18 129/64 98 02/17/20 18:11 98.4 F 81 16 136/78 98 02/17/20 16:30 82 18 132/77 98 02/17/20 14:42 98.2 F 84 18 133/61 99 Intake and Output 02/17/20 02/18/20 02/18/20 22:59 06:59 14:59 Intake Total 0 310 Balance 0 310 Intake: Blood Product 0 310 Rc As-1 Unit 0 310 [id number] Other: Voiding Method Toilet Toilet # Voids 1 1 Weight 83.915 kg On physical examination, patient appears comfortable in no apparent distress. HEAD: Normocephalic, atraumatic. EYES: No scleral icterus. No conjunctival injection. MOUTH: No lesions, tongue midline. NECK: Trachea midline, no gross abnormalities. CHEST: Clear to auscultation with no wheezing or rhonchi appreciated. HEART: S1-S2 appreciated. ABDOMEN: Soft, non-tender to palpation. Bowel sounds are positive. No organomegaly. No guarding or rigidity. EXTREMITIES: No pedal edema. SKIN: No rashes, no jaundice. NEUROLOGIC: Alert and oriented x3. No focal deficits. Results CBC & Chem 7: 02/18/20 11:50 02/18/20 06:32 Labs: Abnormal Lab Results - Last 24 Hours (Table) 02/17/20 02/17/20 02/17/20 Range/Units 15:54 15:54 15:54 RBC 3.09 L (4.30-5.90) m/uL Hgb 7.0 L (13.0-17.5) gm/dL Hct 22.5 L (39.0-53.0) % MCV 72.8 L (80.0-100.0) fL MCH 22.5 L (25.0-35.0) pg MCHC 30.9 L (31.0-37.0) g/dL RDW 15.9 H (11.5-15.5) % Lymphocytes # 0.8 L (1.0-4.8) k/uL APTT 17.5 L (22.0-30.0) sec BUN 23 H (9-20) mg/dL Creatinine 1.46 H (0.66-1.25) mg/dL Glucose 139 H (74-99) mg/dL AST 64 H (17-59) U/L ALT 54 H (4-49) U/L Crossmatch 02/17/20 02/18/20 02/18/20 Range/Units 17:10 01:13 06:32 RBC 3.17 L 3.13 L (4.30-5.90) m/uL Hgb 7.2 L 7.2 L (13.0-17.5) gm/dL Hct 24.2 L 23.8 L (39.0-53.0) % MCV 76.2 L 76.1 L (80.0-100.0) fL MCH 22.8 L 23.0 L (25.0-35.0) pg MCHC 29.9 L 30.2 L (31.0-37.0) g/dL RDW 17.5 H 16.8 H (11.5-15.5) % Lymphocytes # (1.0-4.8) k/uL APTT (22.0-30.0) sec BUN (9-20) mg/dL Creatinine (0.66-1.25) mg/dL Glucose (74-99) mg/dL AST (17-59) U/L ALT (4-49) U/L Crossmatch See Detail Chest x-ray: report reviewed (no acute cardiopulmonary process on chest x-ray) Assessment and Plan (1) Anemia associated with acute blood loss Narrative/Plan: 69-year-old male with multiple medical comorbidities including major fibrillation on anticoagulation therapy which was held last week who presented to the hospital due to weakness and dark-colored stool. Patient found to be anemic on presentation and is status post 1 unit of packed red blood cells with a hemoglobin of 7.1. He reports black dark bowel movements over the past few months. He subsequently developed fatigue and weakness worse with exertion. He reports a remote history of peptic ulcer disease, however is unsure of the cause and how the peptic ulcer disease was diagnosed. He takes significant NSAID therapy with ibuprofen daily for the past few years for joint pain. Last colonoscopy 2-3 years ago significant for diverticulosis. No further signs or symptoms of bleeding today. Hemodynamically stable. Unclear etiology, suspicio n is for peptic ulcer disease with differential including esophagitis, gastritis, AVM or other etiology. Current Visit: Yes Status: Acute Code(s): D62 - ACUTE POSTHEMORRHAGIC ANEMIA SNOMED Code(s): 121233883 (2) Melena Current Visit: Yes Status: Acute Code(s): K92.1 - MELENA SNOMED Code(s): 0897827 (3) GI bleed Current Visit: Yes Status: Acute Code(s): K92.2 - GASTROINTESTINAL HEMORRHAGE, UNSPECIFIED SNOMED Code(s): 58203233 Plan: supportive care Clear liquid diet Continue to monitor hemoglobin and hematocrit and transfuse as needed Protonix 40 mg twice a day Nothing by mouth after midnight Avoid NSAID use Continue to hold anticoagulation therapy Plan for EGD tomorrow for further evaluation Thank you for allowing us to participate in the care of the patient
[2020-02-18] MEDS: PRAVASTATIN SODIUM 20 MG TAB PO SCH (20:06)
[2020-02-18] MEDS: atenoloL 25 MG TAB PO SCH (20:06)
[2020-02-19] MEDS: SODIUM CHLORIDE 0.9% 1,000 ML IV SCH ×2 (05:08→15:58)
[2020-02-19 05:53] LABS: Anisocytosis Slight; HCT 24.3 % (39.0-53.0); Hypochromasia Marked; MCH 21.5 pg (25.0-35.0); MCHC 28.9 g/dL (31.0-37.0); MCV 74.6 fL (80.0-100.0); Mean Platelet Volume 9.5; Microcytosis Slight; Platelet Count 230 k/uL (150-450); Poikilocytosis Marked; RBC 3.25 m/uL (4.30-5.90); RDW 16.6 % (11.5-15.5); WBC 5.5 k/uL (3.8-10.6)
[2020-02-19] MEDS: FLECAINIDE 50 MG TAB PO SCH ×2 (09:11→20:47)
[2020-02-19] MEDS: PANTOPRAZOLE 40 MG/10 ML VIAL IVP SCH ×2 (09:11→20:50)
[2020-02-19 09:54] LABS: African American GFR (CKD) 70.1 (60.0-200.0); Anion Gap 3.6 mmol/L (4.00-12.00); BUN/Creat Ratio 11.67 Ratio (12.00-20.00); Calcium 8.2 mg/dL (8.7-10.3); Carbon Dioxide 27.4 mmol/L (21.6-31.8); Non-African American GFR(CKD) 60.5 (60.0-200.0); Potassium 4.1 mmol/L (3.5-5.5)
[2020-02-19] MEDS ORDERED: SODIUM FERRIC GLUCONAT-SUCROSE 125 MG in SODIUM CHLORIDE 0.9% 100 ML IVPB ONE (10:00)
[2020-02-19] MEDS ORDERED: PROPOFOL 10 MG/ML 20 ML VIAL IV ONE (10:45)
[2020-02-19] MEDS ORDERED: IV FLUID CONTINUATION 1,000 ML IV ONE (10:46)
--- NOTE | 2020-02-19 11:32 | P.PCN ---
Date of Procedure: 02/19/20 Description of Procedure: BRIEF HISTORY: 69-year-old pleasant male with a medical history significant for COPD, atrial fibrillation on Xarelto therapy, hypertension, dyslipidemia and a remote history of peptic ulcer disease who presented to the hospital due to complaints of weakness and dark-colored stool. The patient reports that he is been seen black dark-colored stool over the past few weeks. He denies any gross blood per rectum. He reports a history of peptic ulcer disease in the remote past and is unsure how this was diagnosed her with the etiology was. He denies any epigastric discomfort. The patient has been taking significantNSAID therapy reporting that he takes daily ibuprofen for joint pain. Last colonoscopy was approximately 2-3 years ago per his recollection and significant only for diverticulosis. On presentation patient was found to be anemic with a hem oglobin of 7.0. Currently 7.2 after 1 unit of PRBCs. Xarelto has been held since last week. He denies taking any PPI therapy. PROCEDURE PERFORMED: Esophagogastroduodenoscopy with biopsy. PREOPERATIVE DIAGNOSIS: Melena, anemia of acute blood loss. ESTIMATED BLOOD LOSS: Minimal. IV sedation per anesthesia. PROCEDURE: After informed consent was obtained, the patient was brought into the endoscopy unit. IV sedation was administered by Anesthesia under continuous monitoring. Initially the Olympus GIF-190 video endoscope was inserted into the mouth. Esophagus intubated without any difficulty. It was gradually advanced into the stomach and duodenum and carefully examined. The bulb and the second part of the duodenum appeared normal, with biopsies taken. The scope at this time was w ithdrawn to the stomach, adequately insufflated with air, and upon careful examination, mucosa of the antrum, body, cardia and the fundus appeared normal, except for some mild scattered erythema in the antrum and body suggestive of mild gastritis with biopsies taken. The scope was then withdrawn into the esophagus. The GE junction was located at 40 cm from the incisors, with a 2 cm hiatal hernia noted. There was also a nonobstructing widely patent distal esophageal Schatzki's ring. The esophagus appeared normal. There were no erosions or ulcerations seen and the patient tolerated the procedure well. IMPRESSION: 1. No active bleeding, fresh blood, or old blood noted. 2. Mild gastritis. 3. Small hiatal hernia. 4. Biopsies of the duodenum and antrum and body. RECOMMENDATIONS: The findings of this examination were discussed with the patient. Okay for clear liquid diet. No pathology to explain symptoms and anemia and at this time plan will be to proceed with colonoscopy tomorrow with the possibility of video capsule endoscopy if no pathology is noted to explain anemia on colonoscopy. Await pathology from biopsies. Continue medical management.
--- NOTE | 2020-02-19 12:08 | P.PN ---
Subjective Progress Note Date: 02/19/20 Principal diagnosis: GI bleed Patient is a 69-year-old male with a history of COPD, A. fib started on Xarelto approximately [address] Humphries, hypertension, and dyslipidemia who presented to the emergency department due to decreased exercise tolerance of black tarry stools. He was recently seen by his primary care care physician was Dr. Schwartz due to his dark and tarry stools. Will need continued he presented to the ER. He has had a colonoscopy 2-3 years ago which he states showed diverticulosis. He has recently been having some abdominal cramping. On arrival to the ER his vital signs within normal limits. Initial laboratory analysis showed hemoglobin 7, hematocrit 22.5, INR 1.1, and creatinine 1.46. He was ordered 1 unit of packed red blood cells and subsequently admitted. Repeat hemoglobin after 1 unit of packed red blood cells was 7.2. GI was consulted. He underwent EGD on 02/18 which showed hiatal hernia and mild gastritis and plan is for colonoscopy. Patient seen and examined at bedside. No additional dark bowel movements or b lood in his stool noted. No chest pain or shortness of breath. We discussed findings of a ferritin level of 5.3 indicating ongoing blood loss. He has ordered IV iron infusion. He understands the importance of continued follow-up of his ferritin levels. General: non toxic, no distress, appears younger than stated age Derm: warm, dry Head: atraumatic, normocephalic, symmetric Eyes: EOMI, no lid lag, anicteric sclera Mouth: no lip lesion, mucus membranes moist Cardiovascular: S1S2 reg, no murmur, positive posterior tibial pulse bilateral, Lungs: CTA bilateral, no rhonchi, no rales , no accessory muscle use Abdominal: soft, nontender to palpation, no guarding, no appreciable organomegaly Ext: no gross muscle atrophy, no edema, no contractures Neuro: CN II-XI grossly intact, no focal neuro deficits Psych: Alert, oriented, appropriate affect Anemia with probable GI bleed -PPI -EGD was signs of gastritis and hiatal hernia -GI recommendations appreciated, colonoscopy in a.m. -Clear liquid diet -Serial CBC -Continue to hold xarelto Severe iron deficiency anemia with ferritin 5.3 -Ferralic 1 -Repeat in a.m. -Outpatient repeat ferritin level in 6 weeks BLACK - prerenal - IV fluids -Avoid additional nephrotoxic agents -Continue with IV fluids -Repeat creatinine in a.m. P. A fib - monitor HR - Flecanide - atenolol - no xarelto due to GI bleed Transaminitis - mildly elevated for AST/ALT - Out patient evaluation HTN - atenolol - follow BP HLD - statin COPD - prn bronchdilators DVT prophylaxis: SCDs Discussed with: patient Anticipated discharge: in AM Anticipated discharge place: home A total of 35 minutes was spent on the care of this complex patient more than 50% of the time was spent in counseling and care coordination. Objective - Vital Signs Vital signs: Vital Signs Temp 98.1 F 02/19/20 04:52 Pulse 68 02/19/20 04:52 Resp 16 02/19/20 04:52 BP 112/71 02/19/20 04:52 Pulse Ox 95 02/19/20 04:52 Intake & Output 02/18/20 02/19/20 02/19/20 18:59 06:59 18:59 Intake Total 825 200 Balance 825 200 Intake: IV 200 Intake, IV Titration 825 Amount Sodium Chloride 0.9% 1, 825 000 ml @ 75 mls/hr IV . [id number] [facility] Rx#:[id number] Other: Voiding Method Toilet Toilet Toilet # Voids 3 1 - Labs CBC & Chem 7: 02/19/20 05:41 02/19/20 05:41 Labs: Abnormal Lab Results - Last 24 Hours (Table) 02/18/20 02/18/20 02/18/20 Range/Units 06:32 06:32 11:50 RBC 3.60 L (4.30-5.90) m/uL Hgb 8.3 L (13.0-17.5) gm/dL Hct 27.4 L (39.0-53.0) % MCV 76.1 L (80.0-100.0) fL MCH 23.0 L (25.0-35.0) pg MCHC 30.2 L (31.0-37.0) g/dL RDW 16.8 H (11.5-15.5) % Chloride (96-109) mmol/L Anion Gap (4.00-12.00) mmol/L Est GFR (CKD-EPI)AfAm 53.5 L (60.0-200.0) Est GFR (CKD-EPI)NonAf 46.2 L (60.0-200.0) BUN/Creatinine Ratio (12.00-20.00) Ratio Glucose 126 H (70-110) mg/dL Calcium (8.7-10.3) mg/dL Iron 38 L (65-175) ug/dL % Saturation 8.78 L (15.00-50.00) Ferritin 5.8 L (22.0-322.0) ng/mL AST 49 H (14-35) U/L ALT 50 H (10-49) U/L Total Protein 5.5 L (6.2-8.2) g/dL Albumin 3.70 L (3.80-4.90) g/dL 02/19/20 02/19/20 Range/Units 05:41 05:41 RBC 3.25 L (4.30-5.90) m/uL Hgb 7.0 L (13.0-17.5) gm/dL Hct 24.3 L (39.0-53.0) % MCV 74.6 L (80.0-100.0) fL MCH 21.5 L (25.0-35.0) pg MCHC 28.9 L (31.0-37.0) g/dL RDW 16.6 H (11.5-15.5) % Chloride 110 H (96-109) mmol/L Anion Gap 3.60 L (4.00-12.00) mmol/L Est GFR (CKD-EPI)AfAm (60.0-200.0) Est GFR (CKD-EPI)NonAf (60.0-200.0) BUN/Creatinine Ratio 11.67 L (12.00-20.00) Ratio Glucose (70-110) mg/dL Calcium 8.2 L (8.7-10.3) mg/dL Iron (65-175) ug/dL % Saturation (15.00-50.00) Ferritin (22.0-322.0) ng/mL AST (14-35) U/L ALT (10-49) U/L Total Protein (6.2-8.2) g/dL Albumin (3.80-4.90) g/dL
[2020-02-19] MEDS ORDERED: SODIUM FERRIC GLUCONAT-SUCROSE 62.5 MG in SODIUM CHLORIDE 0.9% 100 ML IVPB ONE (12:30)
[2020-02-19] MEDS ORDERED: PEG 3350-NA SULF,BICARB,CL/KCL 4,000 ML BOTTLE PO ONE (16:00)
[2020-02-19] MEDS ORDERED: bisacodyL 5 MG TABLET.DR PO ONE (17:00)
[2020-02-19] MEDS: PRAVASTATIN SODIUM 20 MG TAB PO SCH (20:47)
[2020-02-19] MEDS: atenoloL 25 MG TAB PO SCH (20:47)
[2020-02-20 08:55] LABS: Anisocytosis Slight; HCT 26.5 % (39.0-53.0); HGB 7.9 gm/dL (13.0-17.5); Hypochromasia Marked; MCH 22.9 pg (25.0-35.0); MCHC 29.8 g/dL (31.0-37.0); MCV 76.8 fL (80.0-100.0); Mean Platelet Volume 8.8; Microcytosis Slight; Platelet Count 258 k/uL (150-450); Poikilocytosis Moderate; RBC 3.45 m/uL (4.30-5.90); RDW 17.6 % (11.5-15.5)
[2020-02-20 09:03] LABS: African American GFR (CKD) 67 (>60 ml/min/1.73 sqM); Anion Gap 5 mmol/L; Blood Urea Nitrogen 12 mg/dL (9-20); Calcium 8.9 mg/dL (8.4-10.2); Carbon Dioxide 27 mmol/L (22-30); Chloride 108 mmol/L (98-107); Glucose 98 mg/dL (74-99); Non-African American GFR(CKD) 58 (>60 ml/min/1.73 sqM); Sodium 140 mmol/L (137-145)
[2020-02-20] MEDS: PANTOPRAZOLE 40 MG/10 ML VIAL IVP SCH ×2 (09:28→20:22)
[2020-02-20] MEDS: FLECAINIDE 50 MG TAB PO SCH ×2 (09:28→20:22)
[2020-02-20] MEDS ORDERED: IV FLUID CONTINUATION 1,000 ML IV ONE ×2 (12:40)
[2020-02-20] MEDS ORDERED: PROPOFOL 10 MG/ML 20 ML VIAL IV ONE (12:40)
[2020-02-20] MEDS ORDERED: LIDOCAINE 1% INJ 10MG/ML (20 ML MDV) ONE (12:40)
--- NOTE | 2020-02-20 13:08 | P.PCN ---
Date of Procedure: 02/20/20 Procedure(s) Performed: BRIEF HISTORY: Patient is a 69-year-old pleasant white male admitted hospital with black tarry stools and symptomatic anemia. He was on Xarelto for A. fib which has been on hold for the last 1 week. An upper endoscopy done by Dr. serra that was unremarkable. His and scheduled for colonoscopy today. PROCEDURE PERFORMED: Colonoscopy with snare polypectomy . PREOPERATIVE DIAGNOSIS: severe symptomatic anemia and dark colored stool IV sedation per Anesthesia. PROCEDURE: After informed consent was obtained, the patient, was brought into the endoscopy unit. IV sedation was administered by Anesthesia under continuous monitoring. Digital rectal examination was normal. Initially the Olympus CF-160 flexible video colonoscope was then inserted in the rectum, gradually advanced into the cecum without any difficulty. Careful examination was performed as the scope was gradually being withdrawn. Ileocecal valve and the appendiceal orifice were visualized and appeared normal. Prep was excellent. Mucosa of the cecum, ascending colon, appeared normal. In the transverse colon there was a 5 limited polyp that was removed by snare polypectomy. Rest of the transverse colon, descending colon, sigmoid colon, and rectum appeared normal. Scattered sigmoid diverticulosis seen. Retroflexion was performed in the rectum and no lesions were seen. The patient tolerated the procedure well. IMPRESSION: 5 mm transverse colon polyp status post polypectomy Scattered sigmoidal diverticulosis RECOMMENDATIONS: Findings of this examination were discussed with the patient as well as his family. He was advised to follow with the biopsy results. He will be scheduled for a small bowel capsule endoscopy to evaluate for small bowel source of GI blood loss.
[2020-02-20] MEDS ORDERED: SIMETHICONE 40 MG/0.6 ML DROPS 2,000 MG/30 ML BOTTLE PO ONE ×2 (13:33→13:51)
--- NOTE | 2020-02-20 14:37 | P.PN ---
Subjective Progress Note Date: 02/20/20 Principal diagnosis: GI bleed Patient is a 69-year-old male with a history of COPD, A. fib started on Xarelto approximately [address] Humphries, hypertension, and dyslipidemia who presented to the emergency department due to decreased exercise tolerance of black tarry stools. He was recently seen by his primary care care physician was Dr. Schwartz due to his dark and tarry stools. Will need continued he presented to the ER. He has had a colonoscopy 2-3 years ago which he states showed diverticulosis. He has recently been having some abdominal cramping. On arrival to the ER his vital signs within normal limits. Initial laboratory analysis showed hemoglobin 7, hematocrit 22.5, INR 1.1, and creatinine 1.46. He was ordered 1 unit of packed red blood cells and subsequently admitted. Repeat hemoglobin after 1 unit of packed red blood cells was 7.2. GI was consulted. He underwent EGD on 02/18 which showed hiatal hernia and mild gastritis. He unde rwent a colonoscopy which showed transverse colon polyp. Patient seen and examined at bedside. No dark bowel movement, no nausea, feeling tired. General: non toxic, no distress, appears younger than stated age Derm: warm, dry Head: atraumatic, normocephalic, symmetric Eyes: EOMI, no lid lag, anicteric sclera Mouth: no lip lesion, mucus membranes moist Cardiovascular: S1S2 reg, no murmur, positive posterior tibial pulse bilateral, Lungs: CTA bilateral, no rhonchi, no rales , no accessory muscle use Abdominal: soft, nontender to palpation, no guarding, no appreciable organomegaly Ext: no gross muscle atrophy, no edema, no contractures Neuro: CN II-XI grossly intact, no focal neuro deficits Psych: Alert, oriented, appropriate affect Anemia with probable GI bleed -PPI -EGD was signs of gastritis and hiatal hernia -Colonoscopy with transverse colon polyp -GI recommendations appreciated await video capsule endoscopy -Serial CBC -Continue to hold xarelto Severe iron deficiency anemia with ferritin 5.3 -Ferralic 1 -Outpatient repeat ferritin level in 6 weeks P. A fib - monitor HR - Flecanide - atenolol - no xarelto due to GI bleed Transaminitis - mildly elevated for AST/ALT - Out patient evaluation HTN - atenolol - follow BP HLD - statin COPD - prn bronchdilators BLACK, resolved DVT prophylaxis: SCDs Discussed with: patient Anticipated discharge: in AM Anticipated discharge place: home A total of 35 minutes was spent on the care of this complex patient more than 50% of the time was spent in counseling and care coordination. Objective - Vital Signs Vital signs: Vital Signs Temp 98.7 F 02/20/20 13:00 Pulse 68 02/20/20 13:00 Resp 16 02/20/20 13:00 BP 112/60 02/20/20 13:00 Pulse Ox 96 02/20/20 13:00 Intake & Output 02/19/20 02/20/20 02/20/20 18:59 06:59 18:59 Intake Total 200 1580 50 Balance 200 1580 50 Intake: IV 200 50 Intake, IV Titration 600 Amount Sodium Chloride 0.9% 1, 600 000 ml @ 75 mls/hr IV . [id number] ELEONORA Rx#:[id number] Oral 980 Other: Voiding Method Toilet Toilet Toilet # Voids 1 1 2 # Bowel Movements 1 4 - Labs CBC & Chem 7: 02/20/20 08:39 02/20/20 08:39 Labs: Abnormal Lab Results - Last 24 Hours (Table) 02/20/20 02/20/20 Range/Units 08:39 08:39 RBC 3.45 L (4.30-5.90) m/uL Hgb 7.9 L (13.0-17.5) gm/dL Hct 26.5 L (39.0-53.0) % MCV 76.8 L (80.0-100.0) fL MCH 22.9 L (25.0-35.0) pg MCHC 29.8 L (31.0-37.0) g/dL RDW 17.6 H (11.5-15.5) % Chloride 108 H (98-107) mmol/L
[2020-02-20] MEDS: SODIUM CHLORIDE 0.9% 1,000 ML IV SCH (19:38)
[2020-02-20] MEDS: PRAVASTATIN SODIUM 20 MG TAB PO SCH (20:22)
[2020-02-20] MEDS: atenoloL 25 MG TAB PO SCH (20:22)
[2020-02-20] MEDS ORDERED: ACETAMINOPHEN TAB 325 MG TAB PO STA (22:13)
[2020-02-21] MEDS: SODIUM CHLORIDE 0.9% 1,000 ML IV SCH (05:56)
[2020-02-21 09:28] LABS: Anisocytosis Slight; HCT 27.2 % (39.0-53.0); HGB 8.2 gm/dL (13.0-17.5); Hypochromasia Marked; MCH 23.2 pg (25.0-35.0); MCHC 30.1 g/dL (31.0-37.0); Mean Platelet Volume 7.5; Microcytosis Slight; Platelet Count 281 k/uL (150-450); Poikilocytosis Moderate; RBC 3.54 m/uL (4.30-5.90); WBC 5.6 k/uL (3.8-10.6)
[2020-02-21] MEDS: PANTOPRAZOLE 40 MG/10 ML VIAL IVP SCH (09:30)
[2020-02-21] MEDS: FLECAINIDE 50 MG TAB PO SCH (09:30)
[2020-02-21] MEDS ORDERED: PANTOPRAZOLE 40 MG TABLET PO SCH (11:30)
--- NOTE | 2020-02-21 12:16 | P.PN ---
Subjective Progress Note Date: 02/21/20 Principal diagnosis: weakness, melena This is a 69-year-old pleasant male sent in to the emergency department with complaints of weakness and melena. He was found to be anemic on admission. He had been complaining of dark stools intermittently over the past several months.he has undergone in upper and lower endoscopy while in the hospital.EGD found no active bleeding or old blood noted. There was mild gastritis and a small hiatal hernia. Biopsies were taken. Colonoscopy was performed showing a 5 mm transverse colon polyp and scattered sigmoid diverticulosis. Sequentially the patient underwent a small bowel video capsule endoscopy. Which the results are unavailable at this time. He states he is feeling much better, weakness has improved. He denies any black or tarry stools. He states he has had normal brown stool. He denies any abdominal pain, nausea, or vomiting. He is tolerating a regular diet. Objective - Vital Signs Vital signs: Vital Signs Temp 98.4 F 02/21/20 05:00 Pulse 71 02/21/20 05:00 Resp 16 02/21/20 05:00 BP 116/59 02/21/20 05:00 Pulse Ox 96 02/21/20 05:00 Intake & Output 02/20/20 02/21/20 02/21/20 18:59 06:59 18:59 Intake Total 50 1440 Balance 50 1440 Intake: IV 50 Oral 1440 Other: Voiding Method Toilet Toilet # Voids 2 1 1 - Exam General appearance: The patient is alert, oriented, in no acute distress. HET: Head is normocephalic and atraumatic. Conjunctiva pink. Sclera and icteric. Neck: Supple without lymphadenopathy. Abdomen: Soft, nontender, nondistended with bowel sounds. No guarding or rigidity. Extremities: Normal skin color and turgor. No pedal edema Neurological: No focal deficits. Alert and oriented 3. - Labs CBC & Chem 7: 02/21/20 09:05 02/20/20 08:39 Labs: Abnormal Lab Results - Last 24 Hours (Table) 02/18/20 02/21/20 Range/Units 06:42 09:05 RBC 3.54 L (4.30-5.90) m/uL Hgb 8.2 L (13.0-17.5) gm/dL Hct 27.2 L (39.0-53.0) % MCV 77.0 L (80.0-100.0) fL MCH 23.2 L (25.0-35.0) pg MCHC 30.1 L (31.0-37.0) g/dL RDW 18.0 H (11.5-15.5) % RBC Folate 1,607 H (280 - 791) ng/mL Assessment and Plan (1) Anemia associated with acute blood loss Narrative/Plan: 69-year-old male with multiple medical comorbidities including major fibr illation on anticoagulation therapy which was held last week who presented to the hospital due to weakness and dark-colored stool. Patient found to be anemic on presentation and is status post 1 unit of packed red blood cells with a hemoglobin of 7.1. He reports black dark bowel movements over the past few months. He subsequently developed fatigue and weakness worse with exertion. He reports a remote history of peptic ulcer disease, however is unsure of the cause and how the peptic ulcer disease was diagnosed. He takes significant NSAID therapy with ibuprofen daily for the past few years for joint pain. Last colonoscopy 2-3 years ago significant for diverticulosis. No further signs or symptoms of bleeding today. Hemodynamically stable. Unclear etiology, suspicion is for peptic ulcer disease with differential including esophagitis, gastritis, AVM or other etiology. Current Visit: Yes Status: Acute Code(s): D62 - ACUTE POSTHEMORRHAGIC ANEMIA SNOMED Code(s): 407521891 (2) GI bleed Current Visit: Yes Status: Acute Code(s): K92.2 - GASTROINTESTINAL HEMORRHAGE, UNSPECIFIED SNOMED Code(s): 35670555 (3) Melena Current Visit: Yes Status: Acute Code(s): K92.1 - MELENA SNOMED Code(s): 3941838 Plan: supportive care advance to regular diet Continue to monitor hemoglobin and hematocrit and transfuse as needed Protonix 40 mg twice a day Avoid NSAID use patient is status post EGD and colonoscopy with no active bleeding noted. Small bowel video capsule endoscopy completed, with normal mucosa and no active bleeding. May restart Xarelto, recommend monthly CBC The patient may be discharged home from a gastroenterology standpoint, will need follow-up as an outpatient for biopsy results. Thank you for allowing us to participate in the care of the patient
[2020-02-21 12:35] VITALS: BP 118/68; PULSE 68; RESP 18; TEMP 97.5
--- NOTE | 2020-02-21 14:18 | P.DS ---
Providers Date of admission: 02/17/20 17:44 Expected date of discharge: 02/21/20 Attending physician: Edyta Neves MD Consults: 02/17/20 17:42 Consult Physician Urgent Consulting Provider: Eric Casey Consult Reason/Comments: anemia Do you want consulting provider notified?: Yes Primary care physician: Cesario Matthews Hospital Course: Discharge Diagnosis: Severe Iron deficiency anemia Acute blood loss anemia Gastritis GI bleed, undetermined source P. A fib Transamintis HTN HLD COPD BLACK Hospital Course: Patient is a 69-year-old male with a history of COPD, A. fib started on Xarelto approximately [address] Humphries, hypertension, and dyslipidemia who presented to the emergency department due to decreased exercise tolerance of black tarry stools. He was recently seen by his primary care care physician was told due discontinue his Xarelto due to his dark and tarry stools. Will need continued he presented to the ER. He has had a colonoscopy 2-3 years ago which he states showed diverticulosis. He has recently been having some abdominal cramping. On arrival to the ER his vital signs within normal limits. Initial laboratory analysis showed hemoglobin 7, hematocrit 22.5, INR 1.1, and creatinine 1.46. He was ordered 1 unit of packed red blood cells and subsequently admitted. Repeat hemoglobin after 1 unit of packed red blood cells was 7.2. GI was consulted. He underwent EGD on 02/18 which showed hiatal hernia and mild gastritis. He underwent a colonoscopy which showed transverse colon polypwhich was biopsied. He underwent a capsule endoscopy which per verbal report was negative. Laboratory analysis showed severe iron deficiency anemia with ferritin of 5.3. He was given 1 dose of paralytic. His hemoglobin remains stable and started increasing throughout his hospital stay. She was determined stable for discharge home. He'll follow-up with Dr. Casey in 1 week for results of capsule endoscopy and biopsies. He will follow-up with Dr. Moon. Ideally the patient should have a repeat CBC in 1 week to ensure hemoglobin stability as well as a repeat ferritin in 4-6 weeks to see if he will need an additional dose of IV iron. As patient has already received IV iron +1 unit of packed red blood cells he will not be discharged home on oral iron. He was also found to have mildly elevated liver enzymes with an AST of 49. He will need to have these followed in outpatient setting. Patient seen and examined at bedside. he denies any chest pain, still having some dyspepsia epigastric, no nausea, no vomiting. What to be discharged home. Vital signs reviewed and stable. General: non toxic, no distress, appears at stated age Derm: warm, dry Head: atraumatic, normocephalic, symmetric Eyes: EOMI, no lid lag, anicteric sclera Mouth: no lip lesion, mucus membranes moist Cardiovascular: S1S2 reg, no murmur, positive posterior tibial pulse bilateral, Lungs: CTA bilateral, no rhonchi, no rales , no accessory muscle use Abdominal: soft, nontender to palpation, no guarding, no appreciable organomegaly Ext: no gross muscle atrophy, no edema, no contractures Neuro: CN II-XI grossly intact, no focal neuro deficits Psych: Alert, except defaultoriented, appropriate affect A total of 35 minutes of time were spent preparing this complex discharge summary . Patient Condition at Discharge: Stable Plan - Discharge Summary Discharge Rx Participant: No New Discharge Prescriptions: New Dexlansoprazole [Dexilant] 60 mg PO DAILY #30 cap.bp Continue Cholecalciferol [Vitamin D3 (25 Mcg = 1000 Iu)] 5,000 units PO HS Azelastine HCl [Astepro] 2 spray EA NOSTRIL DAILY Pravastatin Sodium [Pravachol] 10 mg PO HS Flecainide Acetate 50 mg PO BID Triamterene/Hydrochlorothiazid [Triamterene-Hctz 37.5-25 mg Tb] 1 tab PO DAILY atenoloL [Atenolol] 12.5 mg PO HS Discontinued Omeprazole 40 mg PO DAILY Discharge Medication List Cholecalciferol [Vitamin D3 (25 Mcg = 1000 Iu)] 5,000 units PO HS 12/19/13 [History] Azelastine HCl [Astepro] 2 spray EA NOSTRIL DAILY 02/17/20 [History] Flecainide Acetate 50 mg PO BID 02/17/20 [History] Pravastatin Sodium [Pravachol] 10 mg PO HS 02/17/20 [History] Triamterene/Hydrochlorothiazid [Triamterene-Hctz 37.5-25 mg Tb] 1 tab PO DAILY 02/17/20 [History] atenoloL [Atenolol] 12.5 mg PO HS 02/17/20 [History] Dexlansoprazole [Dexilant] 60 mg PO DAILY #30 cap.bp 02/21/20 [Rx] Follow up Appointment(s)/Referral(s): Cesario Matthews MD [Primary Care Provider] - 1-2 days Eric Casey MD [STAFF PHYSICIAN] - 03/14/20 9:15 am Ambulatory/Diagnostic Orders: Complete Blood Count w/diff [LAB.AMB] Time Frame: 1 Week, Location: None Selected Miscellaneous Lab Order [LAB.AMB] Time Frame: 4 Weeks, Location: None Selected Activity/Diet/Wound Care/Special Instructions: Activity: as tolerated Diet: heart healthy Special Instructions: Repeat ferritin level (Iron) in [address] Matthews Discharge Disposition: HOME SELF-CARE
[2020-02-21] MEDS ORDERED: FERROUS SULFATE 325 MG TAB PO SCH (17:30)
== END 2020-02-21 16:17 | disposition home or self-care (01) | DRG 378 ==
LOC: EC 14:40 → 6NMEDSUR 17:44
PROVIDERS: ADMIT Family Medicine; ATTEND Family Medicine
PROC: 0DB98ZX Excision of Duodenum, Via Natural or Artificial Opening Endoscopic, Diagnostic (ICD-10-PCS; principal; 2020-02-19 10:20)
PROC: 0DB78ZX Excision of Stomach, Pylorus, Via Natural or Artificial Opening Endoscopic, Diagnostic (ICD-10-PCS; principal; 2020-02-19 10:20)
PROC: 30233N1 Transfusion of Nonautologous Red Blood Cells into Peripheral Vein, Percutaneous Approach (ICD-10-PCS; 2020-02-20)
PROC: 0DBL8ZZ Excision of Transverse Colon, Via Natural or Artificial Opening Endoscopic (ICD-10-PCS; 2020-02-20)
DX: K29.71 Gastritis, unspecified, with bleeding (principal); N17.9 Acute kidney failure, unspecified; D62 Acute posthemorrhagic anemia; K57.31 Diverticulosis of large intestine without perforation or abscess with bleeding; I25.10 Atherosclerotic heart disease of native coronary artery without angina pectoris; I10 Essential (primary) hypertension; E78.5 Hyperlipidemia, unspecified; J44.9 Chronic obstructive pulmonary disease, unspecified; I48.0 Paroxysmal atrial fibrillation; D50.9 Iron deficiency anemia, unspecified; K44.9 Diaphragmatic hernia without obstruction or gangrene; K63.5 Polyp of colon; K22.2 Esophageal obstruction; Z79.01 Long term (current) use of anticoagulants; Z79.899 Other long term (current) drug therapy; Z82.49 Family history of ischemic heart disease and other diseases of the circulatory system; Z88.8 Allergy status to other drugs, medicaments and biological substances; Z90.49 Acquired absence of other specified parts of digestive tract; Z90.89 Acquired absence of other organs; Z87.891 Personal history of nicotine dependence; Z82.5 Family history of asthma and other chronic lower respiratory diseases; Z87.11 Personal history of peptic ulcer disease
CPT/HCPCS: 36415; 43239; 45385; 71046; 80048; 80053; 82550; 82607; 82728; 82747; 83540; 83550; 83605; 83735; 83880; 84443; 84484; 85025; 85027; 85379; 85610; 85730; 86850; 86900; 86901; 86920; 88305; 91110; 93005; 96374; 99291

== ENCOUNTER → 2020-03-30 | Outpatient (CLI) | payer MEDICARE, OTHER ==
--- NOTE | 2020-03-31 08:34 | US ---
EXAMINATION TYPE: US kidneys/renal and bladder DATE OF EXAM: 03/30/2020 COMPARISON: NONE CLINICAL HISTORY: N18.2 stage 2 kidney disease. EXAM MEASUREMENTS: Right Kidney: 10.0 x 5.3 x 5.2 cm Left Kidney: 11.2 x 5.0 x 4.5 cm Right Kidney: No hydronephrosis or masses seen Left Kidney: No hydronephrosis or masses seen Bladder: wnl There is no evidence for hydronephrosis at this point in time. No nephrolithiasis is seen. No justin s are identified. The urinary bladder is anechoic. Bilateral ureteral jets are seen. IMPRESSION: No distinct abnormality is appreciated.
== END | disposition home or self-care (01) ==
LOC: RADUSWWP 16:05
PROVIDERS: ATTEND Family Medicine
DX: N18.2 Chronic kidney disease, stage 2 (mild) (principal)
CPT/HCPCS: 76770

== ENCOUNTER 2021-08-29 07:32 | Day surgery (SDC) | payer MEDICARE, OTHER ==
[2021-08-27 16:50] VITALS: BMI 26.8
[2021-08-29] MEDS ORDERED: SODIUM CHLORIDE 0.9% 1,000 ML IV ONE (07:54)
[2021-08-29 07:57] VITALS: RESP 16; TEMP 97.9
[2021-08-29] MEDS ORDERED: fentaNYL (PF) 50 MCG/ML 2 ML AMP ONE (08:39)
[2021-08-29] MEDS: BENZOCAINE SPRAY 1 CAN TOPICAL ONE ×2 (08:50→09:02)
[2021-08-29] MEDS ORDERED: IV FLUID CONTINUATION 400 ML IV ONE ×3 (08:51)
[2021-08-29] MEDS ORDERED: MIDAZOLAM 2 MG/2 ML VIAL IV ONE ×2 (09:02→09:08)
[2021-08-29] MEDS: fentaNYL (PF) 50 MCG/ML 2 ML AMP IV ONE ×2 (09:02→09:08)
[2021-08-29 10:30] VITALS: BP 125/82; PULSE 64
--- NOTE | 2021-08-29 11:12 | P.TEE ---
Description of Procedure(s): Procedure performed: Transesophageal Echocardiogram with color flow doppler, pulsed wave doppler and continuous wave doppler, moderate conscious sedation Moderate conscious sedation: Moderate conscious sedation was supplied by myself with direct supervision with Versed and Fentanyl Complications: none Indications: S/p Watchman SCOTT occlusion PROCEDURE: After the risks, benefits and alternatives of the above mentioned procedure was explained in detail with the patient, informed consent was obtained. Patient was brought to the lab in a fasting state. Patient was given sedation with Versed and Fentanyl. The throat was sprayed with Hurricane to anesthetize the throat. A lubricated Omni probe was then introduced into the esophagus and stomach and multiple views were obtained. 2D echo with color flow doppler, pulsed wave doppler and continuous wave doppler was utilized. Agitated saline was injected with no evidence of PFO. The probe was then removed. Patient tolerated the procedure well. Patient was transferred to the post procedure area in stable and satisfactory condition. FINDINGS: 1. The aortic valve is tricuspid and functioning normally. There is no significant aortic regurgitation. 2. The mitral valve appears be normal trace mitral regurgitation. 3. Tricuspid valve which is normal. 4. The interatrial septum is intact. No evidence of PFO by color or by agitated saline. 5. Left atrial appendage has no SCOTT thrombus. The Watchman device is well seated in the SCOTT with no leak noted. 6. Left ventricular size appears normal. Left ventricular function is normal with an ejection fraction 55-60%.
== END 2021-08-29 10:30 | disposition home or self-care (01) ==
LOC: CATHCVL 07:32
PROVIDERS: ATTEND Internal Medicine
DX: I48.19 Other persistent atrial fibrillation (principal); I10 Essential (primary) hypertension; I49.5 Sick sinus syndrome; E78.5 Hyperlipidemia, unspecified; F17.210 Nicotine dependence, cigarettes, uncomplicated; Z95.818 Presence of other cardiac implants and grafts; Z20.822 Contact with and (suspected) exposure to COVID-19; Z87.19 Personal history of other diseases of the digestive system; Z79.899 Other long term (current) drug therapy; Z88.8 Allergy status to other drugs, medicaments and biological substances
CPT/HCPCS: 93312; 93320; 93325; 87635; J2250; J3010

== ENCOUNTER → 2022-04-21 | Outpatient (CLI) | payer MEDICARE, OTHER ==
--- NOTE | 2022-04-21 13:56 | US ---
EXAMINATION TYPE: US kidneys/renal and bladder DATE OF EXAM: 04/21/2022 COMPARISON: 03/30/2020 CLINICAL HISTORY: N18.31 ckd stage 3. CKD, no symptoms EXAM MEASUREMENTS: Right Kidney: 9.5 x 5.2 x 5.0 cm Left Kidney: 11.2 x 3.4 x 5.1 cm Right Kidney: No hydronephrosis or masses seen Left Kidney: No hydronephrosis or masses seen Bladder: wnl There is no evidence for hydronephrosis at this point in time. No nephrolithiasis is seen. No justin s are identified. The urinary bladder is anechoic. Bilateral ureteral jets are seen. The liver has increased echogenicity to the parenchyma diffusely. IMPRESSION: 1. No evidence of obstructive uropathy. 2. Hepatic steatosis.
== END | disposition home or self-care (01) ==
LOC: RADUSWWP 13:07
PROVIDERS: ATTEND Internal Medicine Nephrology
DX: N18.31 Chronic kidney disease, stage 3a (principal); K76.0 Fatty (change of) liver, not elsewhere classified
CPT/HCPCS: 76770